=== PATIENT | male | born 1945 | race Caucasian/White ===

== ENCOUNTER 2019-03-23 06:53 | Emergency (ER) | payer OTHER ==
[~2019-03-23] VITALS: Ht 165.1 cm; Wt 49.9 kg
== END 2019-03-23 08:15 | disposition home or self-care (01) ==
LOC: ER 06:53
DX: Z00.00 Encounter for general adult medical examination without abnormal findings (principal); F17.200 Nicotine dependence, unspecified, uncomplicated
CPT/HCPCS: 99284